=== PATIENT | male | born 1935 | race Caucasian/White ===

== ENCOUNTER → 2019-10-20 | Outpatient (CLI) | payer MEDICARE | END | disposition home or self-care (01) | LOC: CVU 14:17 | PROVIDERS: ATTEND Internal Medicine Cardiovascular Disease | DX: I08.0 Rheumatic disorders of both mitral and aortic valves (principal); I10 Essential (primary) hypertension; I25.10 Atherosclerotic heart disease of native coronary artery without angina pectoris | CPT/HCPCS: 93306 ==

== ENCOUNTER → 2019-11-09 | Outpatient (CLI) | payer MEDICARE ==
[~2019-11-09] MED LIST: REGADENOSON 0.4 MG/5 ML SYRINGE ONE
== END | disposition home or self-care (01) ==
LOC: CFH 08:08
PROVIDERS: ATTEND Internal Medicine Cardiovascular Disease
DX: I25.89 Other forms of chronic ischemic heart disease (principal); R01.1 Cardiac murmur, unspecified; I10 Essential (primary) hypertension; I25.10 Atherosclerotic heart disease of native coronary artery without angina pectoris
CPT/HCPCS: 78452; 93017; A9502; J2785

== ENCOUNTER 2020-09-29 16:46 | Emergency (ER) | payer MEDICARE ==
[~2020-09-29] VITALS: Ht 182.9 cm; Wt 70.0 kg
--- NOTE | 2020-09-29 16:52 | NUR ---
BREANNA RN: PT IS NOT ABLE TO STAND FOR A TRIAGE WEIGHT
[2020-09-29] MEDS ORDERED: LIDOCAINE-MPF 1%, 5ML INFIL ONE (17:30)
--- NOTE | 2020-09-29 17:45 | NUR ---
pt presents to ED with c/o mechanical glf, tripped while walking in driveway. pt denies cervical pain or tenderness. pt denies loc. pt states he is unaware of last tdap vaccine. large contusion with edema under left eye. pt denies visual changes to left eye. EDT at bedside for wound cleaning. pt a&o, resps even and unlabored, nadn.
[2020-09-29] MEDS ORDERED: DIPH,PERTUSS(ACELL),TET VAC/PF 0.5 ML IM-VACC ONE ×2 (17:49→18:06)
[2020-09-29] MEDS: DIPH,PERTUSS(ACELL),TET VAC/PF 0.5 ML IM-VACC ONE ×2 (17:57→18:38)
[2020-09-29] MEDS ORDERED: LIDOCAINE-MPF 1%, 5ML ONE ×2 (18:40→19:17)
--- NOTE | 2020-09-29 18:45 | NUR ---
tdap admin per emar, pt toleated well. pt is a&o, resps even and unlabored. neurologically intact. cleaning complete by edt, pt has lac to left eyebrow, left cheek, skin tear to left elbow and left wrist, all cleansed by EDT. edpa at bedside for suture.
--- NOTE | 2020-09-29 19:00 | NUR ---
report given at bedside to LAMONT Rodarte.
[2020-09-29 19:53] VITALS: BP 122/72
[2020-09-29] MEDS ORDERED: NEOSPORIN OINT. PKT 1 PACKET ONE (19:58)
== END 2020-09-29 21:07 | disposition home or self-care (01) ==
LOC: ED 17:27
DX: S01.81XA Laceration without foreign body of other part of head, initial encounter (principal); S01.412A Laceration without foreign body of left cheek and temporomandibular area, initial encounter; S51.812A Laceration without foreign body of left forearm, initial encounter; S61.412A Laceration without foreign body of left hand, initial encounter; S09.90XA Unspecified injury of head, initial encounter; S01.402A Unspecified open wound of left cheek and temporomandibular area, initial encounter; W01.0XXA Fall on same level from slipping, tripping and stumbling without subsequent striking against object, initial encounter; Y93.89 Activity, other specified; Y92.410 Unspecified street and highway as the place of occurrence of the external cause; Y99.8 Other external cause status
CPT/HCPCS: 12002; 12014; 70450; 70486; 90471; 90715

== ENCOUNTER 2021-03-01 07:49 | Outpatient (CLI) | payer MEDICARE | END 2021-03-01 23:59 | disposition home or self-care (01) | LOC: CVU 07:49 | PROVIDERS: ATTEND Internal Medicine Cardiovascular Disease | DX: I08.0 Rheumatic disorders of both mitral and aortic valves (principal); I25.10 Atherosclerotic heart disease of native coronary artery without angina pectoris | CPT/HCPCS: 93306; 93356 ==